=== PATIENT | female | born 1945 | race Caucasian/White ===

== ENCOUNTER 2016-11-10 11:05 | Outpatient (CLI) | payer OTHER, MEDICARE ==
[~2016-11-10 11:05] MED LIST: ALPR1TAB2; CETI-101 PO; CHLO5CAP3 PO; LIP10 PO; NEU300 PO; OMEP20CA4 PO; PROP60CA2 PO
== END 2016-11-10 20:49 | disposition home or self-care (01) ==
LOC: SMA 11:05
PROVIDERS: ATTEND Specialist
DX: Z12.31 Encounter for screening mammogram for malignant neoplasm of breast (principal)
CPT/HCPCS: G0202

== ENCOUNTER 2021-04-28 19:50 | Inpatient (IN) | payer OTHER, MEDICARE, SELFPAY ==
[~2021-04-28] VITALS: Ht 154.9 cm; Wt 51.7 kg
[~2021-04-28 19:50] MED LIST changes: -CETI-101 PO; +CETI-80 PO
[2021-04-28 20:36] VITALS: BP_SYST 129
[2021-04-28 22:02] LABS: EOSINOPHILS % (AUTO) 0.1 % (0.0-4.0); MEAN CORPUSCULAR HGB CONC 33 % (32-36); MONOCYTES # (AUTO) 0.5 K/uL (0.0-1.0); RED BLOOD CELL COUNT(AUTO) 3.26 MIL/uL (4.2-6.2); WHITE BLOOD COUNT (AUTO) 10.5 K/uL (4.8-10.8)
[2021-04-28 22:09] LABS: BASOPHILS % (AUTO) 0.1 % (0.0-2.0); HEMOGLOBIN 10.9 g/dL (12.0-16.0); LYMPHOCYTES # (AUTO) 0.2 K/uL (1.0-5.5); LYMPHOCYTES % (AUTO) 1.7 % (20.5-51.5); MEAN CORPUSCULAR HEMOGLOBIN 33 pg (27-31); MEAN CORPUSCULAR VOLUME 101 fL (79.0-98.0); MONOCYTES % (AUTO) 4.3 % (1.7-9.3); NEUTROPHILS # (AUTO) 9.9 K/uL (1.8-7.7); NEUTROPHILS % (AUTO) 93.8 % (40.0-70.0); PLATELET COUNT (AUTO) 254 K/uL (130-430); RED CELL DISTRIBUTION WIDTH 15.6 % (9.0-15.0)
[2021-04-28 22:25] LABS: ANION GAP 10 (5-15); CALCIUM 8.7 mg/dL (8.4-11.0); CHLORIDE 100 mmol/L (98-107); CREATININE 1.63 mg/dL (0.55-1.30); GLUCOSE 147 mg/dL (70-99); SODIUM SERUM 135 mmol/L (136-145); UREA NITROGEN, BLOOD 46 mg/dL (8-21)
[2021-04-28 22:31] LABS: C-REACTIVE PROTEIN QUANT 9.3 mg/dL (0-0.5)
[2021-04-28 22:34] LABS: ALANINE AMINOTRANSFERASE 22 U/L (12-78); ASPARTATE AMINOTRANSFERASE 63 U/L (10-37); LACTATE DEHYDROGENASE 481 U/L (81-234); TOTAL BILIRUBIN 0.3 mg/dL (0.0-1.0)
[2021-04-28 22:43] LABS: INR 0.9 (0.8-1.2); PROTHROMBIN TIME 9.5 SECS (9.5-12.5)
[2021-04-28] MEDS ORDERED: CALCIUM GLUCONATE 1 GM/10 ML VIAL IVP ONE (22:45)
[2021-04-28] MEDS ORDERED: SODIUM BICARBONATE 8.4% JECT 50 MEQ/50 ML SYRINGE IVP ONE (22:45)
[2021-04-28 22:46] LABS: POTASSIUM 5.8 mmol/L (3.5-5.1)
[2021-04-28] MEDS ORDERED: INSULIN REGULAR, HUMAN 10 UNITS/0.1 ML INJ IVP ONE (23:00)
[2021-04-28] MEDS ORDERED: DEXTROSE 50% JECT 50 ML DISP.SYRIN IVP ONE (23:00)
[2021-04-28] MEDS ORDERED: SODIUM POLYSTYRENE SULFONATE 15 GM/60 ML UDBTL PO ONE (23:00)
[2021-04-29 01:47] LABS: BILIRUBIN,URINE NEGATIVE (NEGATIVE); CLARITY/URINE CLEAR (CLEAR); COLOR,URINE YELLOW (YELLOW); GLUCOSE,URINE 1+ (NEGATIVE); KETONES,URINE NEGATIVE (NEGATIVE); LEUKOCYTE ESTERASE ,URINE 2+ (NEGATIVE); NITRITE, URINE POSITIVE (NEGATIVE); PROTEIN URINE TRACE (NEGATIVE); UROBILINOGEN,URINE 0.2 (0.2-1.0)
[2021-04-29 01:57] LABS: BLOOD, URINE TRACE (NEGATIVE)
[2021-04-29 02:06] LABS: BACTERIA,URINE MANY /HPF (None Seen); MUCUS,URINE None Seen /LPF (None Seen); RBC,URINE 0-3 /HPF (0-3); WBC,URINE 20-50 /HPF (0-3)
[2021-04-29 03:10] VITALS: BP_SYST 123
[2021-04-29] MEDS ORDERED: DEXAMETHASONE SOD PHOSPHATE 10 MG/ML VIAL IM ONE (03:30)
[2021-04-29] MEDS ORDERED: cefTRIAXone 1 GM in D5W 50 ML IV SCH (04:00)
[2021-04-29] MEDS ORDERED: DEXAMETHASONE SOD PHOSPHATE 10 MG/ML VIAL IVP ONE (04:15)
[2021-04-29] MEDS ORDERED: cefTRIAXone 1 GM IVPB PREMIX 50 ML IV ONE (04:27)
[2021-04-29] MEDS ORDERED: DOXYCYCLINE HYCLATE 100 MG VIAL IV ONE (04:28)
[2021-04-29] MEDS: DOXYCYCLINE HYCLATE 100 MG in D5W 100 ML IV SCH ×2 (05:37→17:54)
[2021-04-29 07:46] LABS: ANION GAP 11 (5-15); CALCIUM 8.6 mg/dL (8.4-11.0); CHLORIDE 110 mmol/L (98-107); CREATININE 1.49 mg/dL (0.55-1.30); GLUCOSE 202 mg/dL (70-99); POTASSIUM 4.7 mmol/L (3.5-5.1); SODIUM SERUM 147 mmol/L (136-145); UREA NITROGEN, BLOOD 40 mg/dL (8-21)
[2021-04-29 07:51] LABS: ALANINE AMINOTRANSFERASE 62 U/L (12-78); ALBUMIN 2.7 g/dL (3.4-4.8); LACTATE DEHYDROGENASE 552 U/L (81-234); TOTAL BILIRUBIN 0.2 mg/dL (0.0-1.0)
[2021-04-29 07:53] LABS: INR 0.9 (0.8-1.2); PROTHROMBIN TIME 9.4 SECS (9.5-12.5)
[2021-04-29 08:00] VITALS: BP_SYST 129
[2021-04-29 08:10] LABS: ASPARTATE AMINOTRANSFERASE 124 U/L (10-37)
[2021-04-29] MEDS: CHOLECALCIFEROL (VITAMIN D3) 5,000 UNIT TABLET PO SCH (08:44)
[2021-04-29] MEDS: ASCORBIC ACID 500 MG TABLET PO SCH ×2 (08:44→23:25)
[2021-04-29] MEDS: APIXABAN 2.5 MG TABLET PO SCH ×2 (08:45→23:28)
[2021-04-29] MEDS ORDERED: ONDANSETRON HCL 4 MG/2 ML VIAL IVP PRN (10:00)
[2021-04-29] MEDS: ALBUTEROL MDI INHALATION 8 GM INH INH SCH ×4 (11:00→23:46)
[2021-04-29] MEDS ORDERED: ALBUTEROL SULFATE 0.083% 2.5 MG/3 ML VIAL.NEB INH SCH (11:00)
[2021-04-29] MEDS ORDERED: IPRATROPIUM BROM 0.5 MG/2.5 ML VIAL.NEB (ATROVENT) INH SCH (11:00)
[2021-04-29] MEDS ORDERED: ALBUTEROL MDI INHALATION 8 GM INH INH PRN (11:15)
[2021-04-29] MEDS ORDERED: DEXAMETHASONE SOD PHOSPHATE 10 MG/ML VIAL IVP SCH (12:00)
[2021-04-29] MEDS: INSULIN REGULAR, HUMAN 100 UNITS/ML, 10 ML VIAL (humuLIN R) SUBCUT PRN (12:04)
[2021-04-29 12:06] VITALS: BP_SYST 120
[2021-04-29] MEDS ORDERED: D5W 1,000 ML IV ONE (12:30)
[2021-04-29] MEDS: AZITHROMYCIN 500 MG in NS 250 ML IV SCH (13:06)
[2021-04-29 13:41] LABS: CLARITY/URINE SLIGHTLY HAZY (CLEAR); COLOR,URINE YELLOW (YELLOW); PH,URINE 6.5 (5.0-8.0); PROTEIN URINE TRACE (NEGATIVE)
[2021-04-29 13:42] LABS: BILIRUBIN,URINE NEGATIVE (NEGATIVE); BLOOD, URINE 1+ (NEGATIVE); GLUCOSE,URINE 2+ (NEGATIVE); KETONES,URINE NEGATIVE (NEGATIVE); LEUKOCYTE ESTERASE ,URINE TRACE (NEGATIVE)
[2021-04-29 13:43] LABS: NITRITE, URINE POSITIVE (NEGATIVE); UROBILINOGEN,URINE 0.2 (0.2-1.0)
[2021-04-29 13:49] LABS: WBC,URINE 0-3 /HPF (0-3)
[2021-04-29 13:50] LABS: BACTERIA,URINE MODERATE /HPF (None Seen)
[2021-04-29] MEDS ORDERED: NORMAL SALINE 5 ML DISP.SYRIN IVF SCH (14:00)
[2021-04-29] MEDS: NORMAL SALINE 5 ML DISP.SYRIN IVF SCH ×2 (14:40→23:35)
[2021-04-29 16:20] VITALS: BP_SYST 130
[2021-04-29 20:00] VITALS: BP_SYST 130
[2021-04-29] MEDS: ATORVASTATIN 10 MG TABLET PO SCH (23:25)
[2021-04-30 00:05] VITALS: BP_SYST 127
[2021-04-30] MEDS: ALPRAZolam 0.25 MG TABLET PO PRN (01:50)
[2021-04-30] MEDS: NORMAL SALINE 5 ML DISP.SYRIN IVF SCH ×3 (06:17→21:01)
[2021-04-30] MEDS: DOXYCYCLINE HYCLATE 100 MG in D5W 100 ML IV SCH ×2 (06:17→20:17)
[2021-04-30 07:37] LABS: BASOPHILS % (AUTO) 0.1 % (0.0-2.0); HEMATOCRIT 33.5 % (36-48); HEMOGLOBIN 10.8 g/dL (12.0-16.0); LYMPHOCYTES # (AUTO) 0.5 K/uL (1.0-5.5); LYMPHOCYTES % (AUTO) 3.7 % (20.5-51.5); MEAN CORPUSCULAR HEMOGLOBIN 33 pg (27-31); MEAN CORPUSCULAR HGB CONC 32 % (32-36); MEAN CORPUSCULAR VOLUME 102 fL (79.0-98.0); MONOCYTES # (AUTO) 1.1 K/uL (0.0-1.0); MONOCYTES % (AUTO) 7.7 % (1.7-9.3); NEUTROPHILS # (AUTO) 12.7 K/uL (1.8-7.7); NEUTROPHILS % (AUTO) 88.5 % (40.0-70.0); PLATELET COUNT (AUTO) 247 K/uL (130-430); RED BLOOD CELL COUNT(AUTO) 3.28 MIL/uL (4.2-6.2); RED CELL DISTRIBUTION WIDTH 15.9 % (9.0-15.0); WHITE BLOOD COUNT (AUTO) 14.4 K/uL (4.8-10.8)
[2021-04-30 08:00] VITALS: BP_SYST 126
[2021-04-30 08:07] LABS: ALANINE AMINOTRANSFERASE 50 U/L (12-78); ALBUMIN 2.6 g/dL (3.4-4.8); ANION GAP 13 (5-15); ASPARTATE AMINOTRANSFERASE 90 U/L (10-37); CALCIUM 7.7 mg/dL (8.4-11.0); CHLORIDE 105 mmol/L (98-107); CREATININE 0.97 mg/dL (0.55-1.30); GLUCOSE 93 mg/dL (70-99); POTASSIUM 3.7 mmol/L (3.5-5.1); SODIUM SERUM 144 mmol/L (136-145); TOTAL BILIRUBIN 0.2 mg/dL (0.0-1.0); UREA NITROGEN, BLOOD 35 mg/dL (8-21)
[2021-04-30] MEDS: PROPRANOLOL HCL (INDERAL LA 60MG) PO SCH (09:00)
[2021-04-30] MEDS ORDERED: DEXAMETHASONE SOD PHOSPHATE 10 MG/ML VIAL IVP SCH (09:00)
[2021-04-30] MEDS: ALBUTEROL MDI INHALATION 8 GM INH INH SCH ×6 (09:29→23:20)
[2021-04-30] MEDS: cefTRIAXone 1 GM IVPB PREMIX 50 ML IV SCH (10:19)
[2021-04-30] MEDS: CHOLECALCIFEROL (VITAMIN D3) 5,000 UNIT TABLET PO SCH (10:20)
[2021-04-30] MEDS: PANTOPRAZOLE SODIUM 40 MG TAB PO SCH (10:20)
[2021-04-30] MEDS: ASCORBIC ACID 500 MG TABLET PO SCH ×2 (10:20→20:19)
[2021-04-30] MEDS: GABAPENTIN 300 MG CAPSULE PO SCH (10:20)
[2021-04-30] MEDS: APIXABAN 2.5 MG TABLET PO SCH ×2 (10:22→20:18)
[2021-04-30 12:00] VITALS: BP_SYST 136
[2021-04-30] MEDS: AZITHROMYCIN 500 MG in NS 250 ML IV SCH (12:21)
[2021-04-30 16:00] VITALS: BP_SYST 133
[2021-04-30 20:00] VITALS: BP_SYST 129
[2021-04-30] MEDS: ATORVASTATIN 10 MG TABLET PO SCH (20:17)
[2021-05-01 00:41] VITALS: BP_SYST 143
[2021-05-01 05:13] VITALS: BP_SYST 125
[2021-05-01] MEDS: DOXYCYCLINE HYCLATE 100 MG in D5W 100 ML IV SCH ×2 (05:56→18:00)
[2021-05-01] MEDS: NORMAL SALINE 5 ML DISP.SYRIN IVF SCH ×3 (06:01→22:00)
[2021-05-01] MEDS: ALBUTEROL MDI INHALATION 8 GM INH INH SCH ×3 (08:12→15:00)
[2021-05-01] MEDS: PROPRANOLOL HCL (INDERAL LA 60MG) PO SCH (09:00)
[2021-05-01] MEDS: cefTRIAXone 1 GM IVPB PREMIX 50 ML IV SCH (09:11)
[2021-05-01] MEDS: PANTOPRAZOLE SODIUM 40 MG TAB PO SCH (09:11)
[2021-05-01] MEDS: GABAPENTIN 300 MG CAPSULE PO SCH (09:11)
[2021-05-01] MEDS: DEXAMETHASONE SOD PHOSPHATE 10 MG/ML VIAL IVP SCH (09:11)
[2021-05-01] MEDS: ASCORBIC ACID 500 MG TABLET PO SCH ×2 (09:11→21:16)
[2021-05-01] MEDS: CHOLECALCIFEROL (VITAMIN D3) 5,000 UNIT TABLET PO SCH (09:11)
[2021-05-01] MEDS: APIXABAN 2.5 MG TABLET PO SCH ×2 (09:12→21:23)
[2021-05-01 09:15] VITALS: BP_SYST 98
[2021-05-01 11:11] LABS: BASOPHILS % (AUTO) 0.3 % (0.0-2.0); EOSINOPHILS # (AUTO) 0.1 K/uL (0.0-0.4); EOSINOPHILS % (AUTO) 0.5 % (0.0-4.0); HEMATOCRIT 37.5 % (36-48); HEMOGLOBIN 11.9 g/dL (12.0-16.0); LYMPHOCYTES # (AUTO) 0.5 K/uL (1.0-5.5); LYMPHOCYTES % (AUTO) 3.1 % (20.5-51.5); MEAN CORPUSCULAR HEMOGLOBIN 33 pg (27-31); MEAN CORPUSCULAR HGB CONC 32 % (32-36); MEAN CORPUSCULAR VOLUME 104 fL (79.0-98.0); MONOCYTES # (AUTO) 0.9 K/uL (0.0-1.0); MONOCYTES % (AUTO) 5.1 % (1.7-9.3); PLATELET COUNT (AUTO) 265 K/uL (130-430); RED BLOOD CELL COUNT(AUTO) 3.61 MIL/uL (4.2-6.2); RED CELL DISTRIBUTION WIDTH 16.3 % (9.0-15.0); WHITE BLOOD COUNT (AUTO) 17.6 K/uL (4.8-10.8)
[2021-05-01 11:50] LABS: ALANINE AMINOTRANSFERASE 45 U/L (12-78); ALBUMIN 2.6 g/dL (3.4-4.8); ANION GAP 13 (5-15); ASPARTATE AMINOTRANSFERASE 85 U/L (10-37); CALCIUM 8.5 mg/dL (8.4-11.0); CHLORIDE 108 mmol/L (98-107); GLUCOSE 172 mg/dL (70-99); POTASSIUM 5.1 mmol/L (3.5-5.1); SODIUM SERUM 143 mmol/L (136-145); TOTAL BILIRUBIN 0.4 mg/dL (0.0-1.0); UREA NITROGEN, BLOOD 43 mg/dL (8-21)
[2021-05-01 12:08] LABS: C-REACTIVE PROTEIN QUANT 10.8 mg/dL (0-0.5)
[2021-05-01 12:46] VITALS: BP_SYST 132
[2021-05-01] MEDS: AZITHROMYCIN 500 MG in NS 250 ML IV SCH (13:15)
[2021-05-01 16:33] VITALS: BP_SYST 112
[2021-05-01] MEDS: FUROSEMIDE 20 MG/2 ML VIAL IVP SCH (18:00)
[2021-05-01 20:00] VITALS: BP_SYST 129
[2021-05-01] MEDS: ATORVASTATIN 10 MG TABLET PO SCH (21:16)
[2021-05-01] MEDS: INSULIN REGULAR, HUMAN 100 UNITS/ML, 10 ML VIAL (humuLIN R) SUBCUT PRN (21:22)
[2021-05-02 01:20] LABS: INR 1.2 (0.8-1.2); PROTHROMBIN TIME 11.8 SECS (9.5-12.5)
[2021-05-02 03:07] VITALS: BP_SYST 129
[2021-05-02] MEDS: NORMAL SALINE 5 ML DISP.SYRIN IVF SCH ×2 (06:00→21:36)
[2021-05-02] MEDS: ALBUTEROL MDI INHALATION 8 GM INH INH SCH ×6 (06:03→15:06)
[2021-05-02 07:42] LABS: BASOPHILS % (AUTO) 0.4 % (0.0-2.0); HEMATOCRIT 37.8 % (36-48); HEMOGLOBIN 12.3 g/dL (12.0-16.0); LYMPHOCYTES # (AUTO) 0.3 K/uL (1.0-5.5); LYMPHOCYTES % (AUTO) 2.7 % (20.5-51.5); MEAN CORPUSCULAR HEMOGLOBIN 33 pg (27-31); MEAN CORPUSCULAR HGB CONC 32 % (32-36); MEAN CORPUSCULAR VOLUME 103 fL (79.0-98.0); MONOCYTES # (AUTO) 0.8 K/uL (0.0-1.0); MONOCYTES % (AUTO) 7.3 % (1.7-9.3); NEUTROPHILS # (AUTO) 9.2 K/uL (1.8-7.7); NEUTROPHILS % (AUTO) 89.6 % (40.0-70.0); PLATELET COUNT (AUTO) 255 K/uL (130-430); RED BLOOD CELL COUNT(AUTO) 3.69 MIL/uL (4.2-6.2); RED CELL DISTRIBUTION WIDTH 16.4 % (9.0-15.0); WHITE BLOOD COUNT (AUTO) 10.3 K/uL (4.8-10.8)
[2021-05-02 07:56] LABS: ALANINE AMINOTRANSFERASE 41 U/L (12-78); ALBUMIN 2.8 g/dL (3.4-4.8); ANION GAP 12 (5-15); ASPARTATE AMINOTRANSFERASE 59 U/L (10-37); C-REACTIVE PROTEIN QUANT 13.4 mg/dL (0-0.5); CALCIUM 9.2 mg/dL (8.4-11.0); CHLORIDE 107 mmol/L (98-107); CREATININE 1.07 mg/dL (0.55-1.30); GLUCOSE 197 mg/dL (70-99); POTASSIUM 4.8 mmol/L (3.5-5.1); SODIUM SERUM 141 mmol/L (136-145); TOTAL BILIRUBIN 0.5 mg/dL (0.0-1.0); UREA NITROGEN, BLOOD 46 mg/dL (8-21)
[2021-05-02] MEDS: cefTRIAXone 1 GM IVPB PREMIX 50 ML IV SCH (08:00)
[2021-05-02] MEDS: DEXAMETHASONE SOD PHOSPHATE 10 MG/ML VIAL IVP SCH (09:00)
[2021-05-02] MEDS: FUROSEMIDE 20 MG/2 ML VIAL IVP SCH (09:00)
[2021-05-02] MEDS: APIXABAN 2.5 MG TABLET PO SCH ×2 (09:31→21:04)
[2021-05-02] MEDS: ASCORBIC ACID 500 MG TABLET PO SCH ×2 (09:32→21:02)
[2021-05-02] MEDS: CHOLECALCIFEROL (VITAMIN D3) 5,000 UNIT TABLET PO SCH (09:32)
[2021-05-02] MEDS: GABAPENTIN 300 MG CAPSULE PO SCH (09:32)
[2021-05-02] MEDS: PANTOPRAZOLE SODIUM 40 MG TAB PO SCH (09:32)
[2021-05-02] MEDS: PROPRANOLOL HCL (INDERAL LA 60MG) PO SCH (09:33)
[2021-05-02] MEDS: INSULIN REGULAR, HUMAN 100 UNITS/ML, 10 ML VIAL (humuLIN R) SUBCUT PRN (11:57)
[2021-05-02 12:00] VITALS: BP_SYST 119
[2021-05-02] MEDS: AZITHROMYCIN 500 MG in NS 250 ML IV SCH (12:00)
[2021-05-02 13:40] LABS: ERYTHROCYTE SEDIMENTATION RATE 60 MM/HR (0-20)
[2021-05-02 17:00] VITALS: BP_SYST 128
[2021-05-02 20:00] VITALS: BP_SYST 120; BP_SYST 124
[2021-05-02] MEDS: ATORVASTATIN 10 MG TABLET PO SCH (21:02)
[2021-05-02] MEDS: ALPRAZolam 0.25 MG TABLET PO PRN (22:41)
[2021-05-03 01:00] VITALS: BP_SYST 121
[2021-05-03] MEDS: DOXYCYCLINE HYCLATE 100 MG in D5W 100 ML IV SCH ×2 (05:28→16:14)
[2021-05-03] MEDS: NORMAL SALINE 5 ML DISP.SYRIN IVF SCH ×3 (05:28→22:00)
[2021-05-03] MEDS: ALBUTEROL MDI INHALATION 8 GM INH INH SCH ×2 (07:00→15:00)
[2021-05-03] MEDS: cefTRIAXone 1 GM IVPB PREMIX 50 ML IV SCH (08:00)
[2021-05-03 08:14] LABS: BASOPHILS % (AUTO) 0.1 % (0.0-2.0); EOSINOPHILS % (AUTO) 0.2 % (0.0-4.0); HEMOGLOBIN 12.6 g/dL (12.0-16.0); LYMPHOCYTES # (AUTO) 0.5 K/uL (1.0-5.5); LYMPHOCYTES % (AUTO) 3.1 % (20.5-51.5); MEAN CORPUSCULAR HEMOGLOBIN 32 pg (27-31); MEAN CORPUSCULAR HGB CONC 32 % (32-36); MEAN CORPUSCULAR VOLUME 101 fL (79.0-98.0); MONOCYTES # (AUTO) 0.8 K/uL (0.0-1.0); MONOCYTES % (AUTO) 4.9 % (1.7-9.3); NEUTROPHILS # (AUTO) 14.6 K/uL (1.8-7.7); NEUTROPHILS % (AUTO) 91.7 % (40.0-70.0); PLATELET COUNT (AUTO) 250 K/uL (130-430); RED BLOOD CELL COUNT(AUTO) 3.88 MIL/uL (4.2-6.2); RED CELL DISTRIBUTION WIDTH 15.8 % (9.0-15.0); WHITE BLOOD COUNT (AUTO) 15.9 K/uL (4.8-10.8)
[2021-05-03 08:21] LABS: ALANINE AMINOTRANSFERASE 43 U/L (12-78); ALBUMIN 2.9 g/dL (3.4-4.8); ANION GAP 10 (5-15); ASPARTATE AMINOTRANSFERASE 32 U/L (10-37); CALCIUM 8.9 mg/dL (8.4-11.0); CHLORIDE 107 mmol/L (98-107); CREATININE 0.99 mg/dL (0.55-1.30); GLUCOSE 137 mg/dL (70-99); POTASSIUM 4.8 mmol/L (3.5-5.1); SODIUM SERUM 143 mmol/L (136-145); TOTAL BILIRUBIN 0.7 mg/dL (0.0-1.0); UREA NITROGEN, BLOOD 43 mg/dL (8-21)
[2021-05-03] MEDS: DEXAMETHASONE SOD PHOSPHATE 10 MG/ML VIAL IVP SCH (09:00)
[2021-05-03] MEDS: FUROSEMIDE 20 MG/2 ML VIAL IVP SCH (09:00)
[2021-05-03] MEDS: PANTOPRAZOLE SODIUM 40 MG TAB PO SCH (09:20)
[2021-05-03] MEDS: GABAPENTIN 300 MG CAPSULE PO SCH (09:20)
[2021-05-03] MEDS: CHOLECALCIFEROL (VITAMIN D3) 5,000 UNIT TABLET PO SCH (09:20)
[2021-05-03] MEDS: ASCORBIC ACID 500 MG TABLET PO SCH ×2 (09:21→21:33)
[2021-05-03] MEDS: PROPRANOLOL HCL (INDERAL LA 60MG) PO SCH (09:22)
[2021-05-03] MEDS: APIXABAN 2.5 MG TABLET PO SCH ×2 (09:27→21:34)
[2021-05-03] MEDS: AZITHROMYCIN 500 MG in NS 250 ML IV SCH (11:05)
[2021-05-03 11:29] VITALS: BP_SYST 126
[2021-05-03 14:44] VITALS: BP_SYST 126
[2021-05-03 15:20] VITALS: BP_SYST 120
[2021-05-03] MEDS: ATORVASTATIN 10 MG TABLET PO SCH (21:34)
[2021-05-03] MEDS: INSULIN REGULAR, HUMAN 100 UNITS/ML, 10 ML VIAL (humuLIN R) SUBCUT PRN (21:41)
[2021-05-03 21:54] VITALS: BP_SYST 134
[2021-05-04 00:14] VITALS: BP_SYST 109
[2021-05-04] MEDS: ALBUTEROL MDI INHALATION 8 GM INH INH SCH ×7 (01:02→22:12)
[2021-05-04] MEDS: DOXYCYCLINE HYCLATE 100 MG in D5W 100 ML IV SCH ×2 (07:01→17:55)
[2021-05-04] MEDS: NORMAL SALINE 5 ML DISP.SYRIN IVF SCH ×3 (07:02→22:36)
[2021-05-04 08:00] VITALS: BP_SYST 126
[2021-05-04] MEDS: PROPRANOLOL HCL (INDERAL LA 60MG) PO SCH ×2 (09:00→14:32)
[2021-05-04] MEDS: cefTRIAXone 1 GM IVPB PREMIX 50 ML IV SCH (11:22)
[2021-05-04] MEDS: DEXAMETHASONE SOD PHOSPHATE 10 MG/ML VIAL IVP SCH (11:23)
[2021-05-04] MEDS: FUROSEMIDE 20 MG/2 ML VIAL IVP SCH (11:24)
[2021-05-04] MEDS: PANTOPRAZOLE SODIUM 40 MG TAB PO SCH (11:24)
[2021-05-04] MEDS: GABAPENTIN 300 MG CAPSULE PO SCH (11:24)
[2021-05-04] MEDS: ASCORBIC ACID 500 MG TABLET PO SCH ×2 (11:24→22:35)
[2021-05-04] MEDS: CHOLECALCIFEROL (VITAMIN D3) 5,000 UNIT TABLET PO SCH (11:25)
[2021-05-04] MEDS: APIXABAN 2.5 MG TABLET PO SCH ×2 (11:27→22:35)
[2021-05-04] MEDS: INSULIN REGULAR, HUMAN 100 UNITS/ML, 10 ML VIAL (humuLIN R) SUBCUT PRN ×3 (11:28→22:39)
[2021-05-04 11:30] VITALS: BP_SYST 123
[2021-05-04] MEDS: BARICITINIB -Non-Formulary 2 MG TABLET PO SCH (14:31)
[2021-05-04 16:11] VITALS: BP_SYST 126
[2021-05-04 18:49] VITALS: BP_SYST 126
[2021-05-04 20:00] VITALS: BP_SYST 141
[2021-05-04] MEDS: ATORVASTATIN 10 MG TABLET PO SCH (22:34)
[2021-05-05 00:12] VITALS: BP_SYST 124
[2021-05-05] MEDS: ALBUTEROL MDI INHALATION 8 GM INH INH SCH ×5 (03:00→15:37)
[2021-05-05] MEDS: ALPRAZolam 0.25 MG TABLET PO PRN (03:30)
[2021-05-05] MEDS: DOXYCYCLINE HYCLATE 100 MG in D5W 100 ML IV SCH (06:29)
[2021-05-05] MEDS: NORMAL SALINE 5 ML DISP.SYRIN IVF SCH ×3 (06:30→21:08)
[2021-05-05 07:15] LABS: BASOPHILS % (AUTO) 0.5 % (0.0-2.0); EOSINOPHILS % (AUTO) 0.1 % (0.0-4.0); HEMATOCRIT 34.5 % (36-48); HEMOGLOBIN 11.4 g/dL (12.0-16.0); LYMPHOCYTES # (AUTO) 0.3 K/uL (1.0-5.5); LYMPHOCYTES % (AUTO) 3.1 % (20.5-51.5); MEAN CORPUSCULAR HEMOGLOBIN 33 pg (27-31); MEAN CORPUSCULAR HGB CONC 33 % (32-36); MEAN CORPUSCULAR VOLUME 101 fL (79.0-98.0); MONOCYTES # (AUTO) 0.4 K/uL (0.0-1.0); MONOCYTES % (AUTO) 4.5 % (1.7-9.3); NEUTROPHILS # (AUTO) 7.8 K/uL (1.8-7.7); NEUTROPHILS % (AUTO) 91.8 % (40.0-70.0); PLATELET COUNT (AUTO) 179 K/uL (130-430); RED CELL DISTRIBUTION WIDTH 15.3 % (9.0-15.0)
[2021-05-05 07:53] LABS: ALANINE AMINOTRANSFERASE 24 U/L (12-78); ALBUMIN 2.3 g/dL (3.4-4.8); ANION GAP 10 (5-15); ASPARTATE AMINOTRANSFERASE 22 U/L (10-37); CALCIUM 8.9 mg/dL (8.4-11.0); CHLORIDE 106 mmol/L (98-107); CREATININE 0.97 mg/dL (0.55-1.30); GLUCOSE 141 mg/dL (70-99); POTASSIUM 4.6 mmol/L (3.5-5.1); SODIUM SERUM 141 mmol/L (136-145); TOTAL BILIRUBIN 0.5 mg/dL (0.0-1.0); UREA NITROGEN, BLOOD 48 mg/dL (8-21)
[2021-05-05 08:00] VITALS: BP_SYST 100
[2021-05-05] MEDS: cefTRIAXone 1 GM IVPB PREMIX 50 ML IV SCH (08:48)
[2021-05-05] MEDS: PANTOPRAZOLE SODIUM 40 MG TAB PO SCH (08:49)
[2021-05-05] MEDS: ASCORBIC ACID 500 MG TABLET PO SCH ×2 (08:49→20:44)
[2021-05-05] MEDS: DEXAMETHASONE SOD PHOSPHATE 10 MG/ML VIAL IVP SCH (08:49)
[2021-05-05] MEDS: BARICITINIB -Non-Formulary 2 MG TABLET PO SCH (08:50)
[2021-05-05] MEDS: GABAPENTIN 300 MG CAPSULE PO SCH (08:50)
[2021-05-05 08:56] LABS: WHITE BLOOD COUNT (AUTO) 8.5 K/uL (4.8-10.8)
[2021-05-05] MEDS: FUROSEMIDE 20 MG/2 ML VIAL IVP SCH (09:25)
[2021-05-05] MEDS: CHOLECALCIFEROL (VITAMIN D3) 5,000 UNIT TABLET PO SCH (09:25)
[2021-05-05] MEDS: PROPRANOLOL HCL (INDERAL LA 60MG) PO SCH (09:25)
[2021-05-05] MEDS: APIXABAN 2.5 MG TABLET PO SCH ×2 (09:29→20:45)
[2021-05-05 10:00] LABS: C-REACTIVE PROTEIN QUANT 12.7 mg/dL (0-0.5)
[2021-05-05 11:00] LABS: ERYTHROCYTE SEDIMENTATION RATE 69 MM/HR (0-20)
[2021-05-05 11:26] VITALS: BP_SYST 120
[2021-05-05] MEDS: INSULIN REGULAR, HUMAN 100 UNITS/ML, 10 ML VIAL (humuLIN R) SUBCUT PRN ×2 (11:41→16:53)
[2021-05-05 16:03] VITALS: BP_SYST 136
[2021-05-05 20:00] VITALS: BP_SYST 143
[2021-05-05] MEDS: ATORVASTATIN 10 MG TABLET PO SCH (20:53)
[2021-05-06] VITALS (17 sets, daily range): BP systolic 108–153
[2021-05-06] MEDS: ACETAMINOPHEN 325 MG TABLET PO PRN (00:39)
[2021-05-06] MEDS: ALPRAZolam 0.25 MG TABLET PO PRN (00:39)
[2021-05-06] MEDS: guaiFENesin/DEXTROMETHORPHAN 10 ML UDC PO PRN ×2 (00:40→06:18)
[2021-05-06] MEDS: ALBUTEROL MDI INHALATION 8 GM INH INH SCH ×3 (05:14→21:22)
[2021-05-06] MEDS: NORMAL SALINE 5 ML DISP.SYRIN IVF SCH ×3 (06:19→22:02)
[2021-05-06] MEDS: INSULIN REGULAR, HUMAN 100 UNITS/ML, 10 ML VIAL (humuLIN R) SUBCUT PRN ×2 (06:26→18:54)
[2021-05-06 08:50] LABS: ALANINE AMINOTRANSFERASE 26 U/L (12-78); ALBUMIN 2.3 g/dL (3.4-4.8); ANION GAP 13 (5-15); ASPARTATE AMINOTRANSFERASE 38 U/L (10-37); C-REACTIVE PROTEIN QUANT 5.3 mg/dL (0-0.5); CALCIUM 8.9 mg/dL (8.4-11.0); CHLORIDE 107 mmol/L (98-107); CREATININE 1.14 mg/dL (0.55-1.30); GLUCOSE 183 mg/dL (70-99); SODIUM SERUM 141 mmol/L (136-145); TOTAL BILIRUBIN 0.5 mg/dL (0.0-1.0); UREA NITROGEN, BLOOD 72 mg/dL (8-21)
[2021-05-06] MEDS ORDERED: FUROSEMIDE 40 MG/4 ML VIAL IVP ONE (09:00)
[2021-05-06] MEDS: ASCORBIC ACID 500 MG TABLET PO SCH ×2 (09:00→20:45)
[2021-05-06] MEDS: CHOLECALCIFEROL (VITAMIN D3) 5,000 UNIT TABLET PO SCH (09:00)
[2021-05-06] MEDS: GABAPENTIN 300 MG CAPSULE PO SCH (09:00)
[2021-05-06] MEDS: PROPRANOLOL HCL (INDERAL LA 60MG) PO SCH (09:00)
[2021-05-06] MEDS: PANTOPRAZOLE SODIUM 40 MG TAB PO SCH (09:00)
[2021-05-06] MEDS: BARICITINIB -Non-Formulary 2 MG TABLET PO SCH (09:00)
[2021-05-06] MEDS: APIXABAN 2.5 MG TABLET PO SCH ×2 (09:00→20:46)
[2021-05-06 09:16] LABS: BASOPHILS % (AUTO) 0.4 % (0.0-2.0); EOSINOPHILS % (AUTO) 0.1 % (0.0-4.0); HEMATOCRIT 38.7 % (36-48); HEMOGLOBIN 12.4 g/dL (12.0-16.0); LYMPHOCYTES # (AUTO) 0.4 K/uL (1.0-5.5); LYMPHOCYTES % (AUTO) 4.2 % (20.5-51.5); MEAN CORPUSCULAR HEMOGLOBIN 33 pg (27-31); MEAN CORPUSCULAR HGB CONC 32 % (32-36); MEAN CORPUSCULAR VOLUME 103 fL (79.0-98.0); MONOCYTES # (AUTO) 1.1 K/uL (0.0-1.0); MONOCYTES % (AUTO) 11.4 % (1.7-9.3); NEUTROPHILS # (AUTO) 8.3 K/uL (1.8-7.7); NEUTROPHILS % (AUTO) 83.9 % (40.0-70.0); PLATELET COUNT (AUTO) 203 K/uL (130-430); RED BLOOD CELL COUNT(AUTO) 3.74 MIL/uL (4.2-6.2); RED CELL DISTRIBUTION WIDTH 15.8 % (9.0-15.0); WHITE BLOOD COUNT (AUTO) 9.9 K/uL (4.8-10.8)
[2021-05-06] MEDS: FUROSEMIDE 20 MG/2 ML VIAL IVP SCH ×2 (09:16→09:24)
[2021-05-06] MEDS: cefTRIAXone 1 GM IVPB PREMIX 50 ML IV SCH (09:16)
[2021-05-06] MEDS: DEXAMETHASONE SOD PHOSPHATE 10 MG/ML VIAL IVP SCH (09:17)
[2021-05-06 10:13] LABS: POTASSIUM 5.2 mmol/L (3.5-5.1)
[2021-05-06] MEDS: D5/0.45 NS 1,000 ML IV SCH (11:48)
[2021-05-06] MEDS ORDERED: ATROPINE SULFATE 1 MG/10 ML SYRINGE IVP PRN (16:15)
[2021-05-06] MEDS ORDERED: DOPamine PREMIX 250 ML IV PRN (16:15)
[2021-05-06 18:29] LABS: ALANINE AMINOTRANSFERASE 22 U/L (12-78); ALBUMIN 2.5 g/dL (3.4-4.8); ANION GAP 13 (5-15); ASPARTATE AMINOTRANSFERASE 20 U/L (10-37); CALCIUM 8.8 mg/dL (8.4-11.0); CHLORIDE 105 mmol/L (98-107); CREATININE 1.07 mg/dL (0.55-1.30); GLUCOSE 291 mg/dL (70-99); PHOSPHORUS 4.5 mg/dL (2.7-4.5); POTASSIUM 5.1 mmol/L (3.5-5.1); SODIUM SERUM 140 mmol/L (136-145); TOTAL BILIRUBIN 0.3 mg/dL (0.0-1.0); UREA NITROGEN, BLOOD 63 mg/dL (8-21)
[2021-05-06] MEDS: ATORVASTATIN 10 MG TABLET PO SCH (20:44)
[2021-05-07] VITALS (24 sets, daily range): BP systolic 96–154
[2021-05-07] MEDS ORDERED: NYSTATIN 500,000 UNITS/5 ML UDC ONE (00:14)
[2021-05-07] MEDS: NYSTATIN 500,000 UNITS/5 ML UDC PO SCH ×4 (00:33→18:00)
[2021-05-07] MEDS: ALPRAZolam 0.25 MG TABLET PO PRN (00:33)
[2021-05-07] MEDS: D5/0.45 NS 1,000 ML IV SCH ×3 (00:34→17:30)
[2021-05-07] MEDS: ALBUTEROL MDI INHALATION 8 GM INH INH SCH ×5 (04:54→19:50)
[2021-05-07] MEDS: NORMAL SALINE 5 ML DISP.SYRIN IVF SCH ×3 (06:08→22:00)
[2021-05-07 07:47] LABS: BASOPHILS % (AUTO) 0.1 % (0.0-2.0); HEMATOCRIT 34.6 % (36-48); HEMOGLOBIN 11.2 g/dL (12.0-16.0); LYMPHOCYTES # (AUTO) 0.2 K/uL (1.0-5.5); LYMPHOCYTES % (AUTO) 1.1 % (20.5-51.5); MEAN CORPUSCULAR HEMOGLOBIN 33 pg (27-31); MEAN CORPUSCULAR HGB CONC 32 % (32-36); MEAN CORPUSCULAR VOLUME 102 fL (79.0-98.0); MONOCYTES # (AUTO) 1.4 K/uL (0.0-1.0); MONOCYTES % (AUTO) 10.3 % (1.7-9.3); NEUTROPHILS # (AUTO) 12.2 K/uL (1.8-7.7); NEUTROPHILS % (AUTO) 88.5 % (40.0-70.0); PLATELET COUNT (AUTO) 215 K/uL (130-430); RED CELL DISTRIBUTION WIDTH 15.8 % (9.0-15.0); WHITE BLOOD COUNT (AUTO) 13.8 K/uL (4.8-10.8)
[2021-05-07 08:22] LABS: ALANINE AMINOTRANSFERASE 31 U/L (12-78); ALBUMIN 2.5 g/dL (3.4-4.8); ANION GAP 11 (5-15); ASPARTATE AMINOTRANSFERASE 38 U/L (10-37); CALCIUM 8.1 mg/dL (8.4-11.0); CHLORIDE 107 mmol/L (98-107); CREATININE 0.76 mg/dL (0.55-1.30); GLUCOSE 219 mg/dL (70-99); POTASSIUM 4.7 mmol/L (3.5-5.1); SODIUM SERUM 143 mmol/L (136-145); TOTAL BILIRUBIN 0.4 mg/dL (0.0-1.0); UREA NITROGEN, BLOOD 51 mg/dL (8-21)
[2021-05-07] MEDS: BARICITINIB -Non-Formulary 2 MG TABLET PO SCH (09:00)
[2021-05-07] MEDS: cefTRIAXone 1 GM IVPB PREMIX 50 ML IV SCH (10:11)
[2021-05-07] MEDS: DEXAMETHASONE SOD PHOSPHATE 10 MG/ML VIAL IVP SCH (10:11)
[2021-05-07] MEDS: APIXABAN 2.5 MG TABLET PO SCH ×2 (10:13→21:00)
[2021-05-07] MEDS: GABAPENTIN 300 MG CAPSULE PO SCH (10:14)
[2021-05-07] MEDS: ASCORBIC ACID 500 MG TABLET PO SCH ×2 (10:14→21:00)
[2021-05-07] MEDS: PANTOPRAZOLE SODIUM 40 MG TAB PO SCH (10:15)
[2021-05-07] MEDS: CHOLECALCIFEROL (VITAMIN D3) 5,000 UNIT TABLET PO SCH (10:22)
[2021-05-07 10:37] LABS: C-REACTIVE PROTEIN QUANT 2.3 mg/dL (0-0.5)
[2021-05-07 12:33] LABS: ERYTHROCYTE SEDIMENTATION RATE 55 MM/HR (0-20)
[2021-05-07] MEDS: ACETAMINOPHEN 325 MG TABLET PO PRN ×2 (12:54→14:36)
[2021-05-07] MEDS: INSULIN REGULAR, HUMAN 100 UNITS/ML, 10 ML VIAL (humuLIN R) SUBCUT PRN (19:43)
[2021-05-07] MEDS: ATORVASTATIN 10 MG TABLET PO SCH (21:00)
[2021-05-08] VITALS (23 sets, daily range): BP systolic 91–154
[2021-05-08] MEDS: ALPRAZolam 0.25 MG TABLET PO PRN (02:35)
[2021-05-08] MEDS: D5/0.45 NS 1,000 ML IV SCH (03:30)
[2021-05-08] MEDS: ALBUTEROL MDI INHALATION 8 GM INH INH SCH ×6 (03:48→19:20)
[2021-05-08] MEDS: NYSTATIN 500,000 UNITS/5 ML UDC PO SCH ×4 (06:00→18:00)
[2021-05-08] MEDS: NORMAL SALINE 5 ML DISP.SYRIN IVF SCH ×3 (06:01→22:00)
[2021-05-08] MEDS: INSULIN REGULAR, HUMAN 100 UNITS/ML, 10 ML VIAL (humuLIN R) SUBCUT PRN ×3 (06:51→19:32)
[2021-05-08 07:01] LABS: BASOPHILS % (AUTO) 0.1 % (0.0-2.0); EOSINOPHILS % (AUTO) 0.3 % (0.0-4.0); HEMATOCRIT 32.9 % (36-48); HEMOGLOBIN 10.8 g/dL (12.0-16.0); LYMPHOCYTES # (AUTO) 0.2 K/uL (1.0-5.5); LYMPHOCYTES % (AUTO) 1.8 % (20.5-51.5); MEAN CORPUSCULAR HEMOGLOBIN 33 pg (27-31); MEAN CORPUSCULAR HGB CONC 33 % (32-36); MEAN CORPUSCULAR VOLUME 101 fL (79.0-98.0); MONOCYTES # (AUTO) 0.6 K/uL (0.0-1.0); MONOCYTES % (AUTO) 4.6 % (1.7-9.3); NEUTROPHILS # (AUTO) 12.2 K/uL (1.8-7.7); NEUTROPHILS % (AUTO) 93.2 % (40.0-70.0); PLATELET COUNT (AUTO) 199 K/uL (130-430); RED BLOOD CELL COUNT(AUTO) 3.27 MIL/uL (4.2-6.2); RED CELL DISTRIBUTION WIDTH 15.1 % (9.0-15.0); WHITE BLOOD COUNT (AUTO) 13.1 K/uL (4.8-10.8)
[2021-05-08 07:31] LABS: ALANINE AMINOTRANSFERASE 26 U/L (12-78); ALBUMIN 2.2 g/dL (3.4-4.8); ANION GAP 9 (5-15); ASPARTATE AMINOTRANSFERASE 33 U/L (10-37); CALCIUM 7.8 mg/dL (8.4-11.0); CHLORIDE 107 mmol/L (98-107); CREATININE 0.67 mg/dL (0.55-1.30); GLUCOSE 188 mg/dL (70-99); POTASSIUM 3.5 mmol/L (3.5-5.1); SODIUM SERUM 139 mmol/L (136-145); TOTAL BILIRUBIN 0.4 mg/dL (0.0-1.0); UREA NITROGEN, BLOOD 26 mg/dL (8-21)
[2021-05-08 08:56] LABS: C-REACTIVE PROTEIN QUANT 6.7 mg/dL (0-0.5)
[2021-05-08] MEDS: cefTRIAXone 1 GM IVPB PREMIX 50 ML IV SCH (08:58)
[2021-05-08] MEDS: DEXAMETHASONE SOD PHOSPHATE 10 MG/ML VIAL IVP SCH (09:00)
[2021-05-08] MEDS: FUROSEMIDE 20 MG/2 ML VIAL IVP SCH (09:06)
[2021-05-08] MEDS: APIXABAN 2.5 MG TABLET PO SCH ×2 (09:09→21:00)
[2021-05-08] MEDS: ASCORBIC ACID 500 MG TABLET PO SCH ×2 (09:10→21:00)
[2021-05-08] MEDS: GABAPENTIN 300 MG CAPSULE PO SCH (09:10)
[2021-05-08] MEDS: CHOLECALCIFEROL (VITAMIN D3) 5,000 UNIT TABLET PO SCH (09:10)
[2021-05-08] MEDS: PANTOPRAZOLE SODIUM 40 MG TAB PO SCH (09:11)
[2021-05-08] MEDS: BARICITINIB -Non-Formulary 2 MG TABLET PO SCH (09:54)
[2021-05-08] MEDS: ACETAMINOPHEN 325 MG TABLET PO PRN (13:07)
[2021-05-08 13:34] LABS: ERYTHROCYTE SEDIMENTATION RATE 54 MM/HR (0-20)
[2021-05-08] MEDS: ATORVASTATIN 10 MG TABLET PO SCH (21:00)
[2021-05-09] VITALS (24 sets, daily range): BP systolic 96–158
[2021-05-09] MEDS: NYSTATIN 500,000 UNITS/5 ML UDC PO SCH ×4 (01:06→17:28)
[2021-05-09] MEDS: ACETAMINOPHEN 325 MG TABLET PO PRN (01:06)
[2021-05-09] MEDS: NORMAL SALINE 5 ML DISP.SYRIN IVF SCH ×3 (05:25→21:52)
[2021-05-09] MEDS: ALBUTEROL MDI INHALATION 8 GM INH INH SCH ×4 (08:10→19:00)
[2021-05-09 08:34] LABS: BASOPHILS % (AUTO) 0.1 % (0.0-2.0); EOSINOPHILS % (AUTO) 0.1 % (0.0-4.0); HEMATOCRIT 35.9 % (36-48); HEMOGLOBIN 11.9 g/dL (12.0-16.0); LYMPHOCYTES # (AUTO) 0.2 K/uL (1.0-5.5); LYMPHOCYTES % (AUTO) 1.8 % (20.5-51.5); MEAN CORPUSCULAR HEMOGLOBIN 33 pg (27-31); MEAN CORPUSCULAR HGB CONC 33 % (32-36); MEAN CORPUSCULAR VOLUME 101 fL (79.0-98.0); MONOCYTES # (AUTO) 0.5 K/uL (0.0-1.0); MONOCYTES % (AUTO) 3.9 % (1.7-9.3); NEUTROPHILS # (AUTO) 12.9 K/uL (1.8-7.7); NEUTROPHILS % (AUTO) 94.1 % (40.0-70.0); PLATELET COUNT (AUTO) 219 K/uL (130-430); RED BLOOD CELL COUNT(AUTO) 3.57 MIL/uL (4.2-6.2); RED CELL DISTRIBUTION WIDTH 15.2 % (9.0-15.0); WHITE BLOOD COUNT (AUTO) 13.8 K/uL (4.8-10.8)
[2021-05-09] MEDS: cefTRIAXone 1 GM IVPB PREMIX 50 ML IV SCH (08:49)
[2021-05-09] MEDS: GABAPENTIN 300 MG CAPSULE PO SCH (09:04)
[2021-05-09] MEDS: DEXAMETHASONE SOD PHOSPHATE 10 MG/ML VIAL IVP SCH (09:04)
[2021-05-09 09:05] LABS: ALANINE AMINOTRANSFERASE 28 U/L (12-78); ALBUMIN 2.3 g/dL (3.4-4.8); ANION GAP 10 (5-15); ASPARTATE AMINOTRANSFERASE 27 U/L (10-37); CALCIUM 8.3 mg/dL (8.4-11.0); CHLORIDE 105 mmol/L (98-107); CREATININE 0.78 mg/dL (0.55-1.30); GLUCOSE 150 mg/dL (70-99); SODIUM SERUM 141 mmol/L (136-145); TOTAL BILIRUBIN 0.4 mg/dL (0.0-1.0); UREA NITROGEN, BLOOD 26 mg/dL (8-21)
[2021-05-09] MEDS: CHOLECALCIFEROL (VITAMIN D3) 5,000 UNIT TABLET PO SCH (09:05)
[2021-05-09] MEDS: ASCORBIC ACID 500 MG TABLET PO SCH ×2 (09:05→21:51)
[2021-05-09] MEDS: PANTOPRAZOLE SODIUM 40 MG TAB PO SCH (09:05)
[2021-05-09] MEDS: BARICITINIB -Non-Formulary 2 MG TABLET PO SCH (09:06)
[2021-05-09] MEDS: FUROSEMIDE 20 MG TABLET PO SCH (09:08)
[2021-05-09] MEDS: APIXABAN 2.5 MG TABLET PO SCH ×2 (09:09→21:00)
[2021-05-09 10:03] LABS: C-REACTIVE PROTEIN QUANT 18.3 mg/dL (0-0.5)
[2021-05-09 11:15] LABS: ERYTHROCYTE SEDIMENTATION RATE 67 MM/HR (0-20)
[2021-05-09] MEDS: INSULIN REGULAR, HUMAN 100 UNITS/ML, 10 ML VIAL (humuLIN R) SUBCUT PRN ×2 (11:50→17:24)
[2021-05-09] MEDS ORDERED: LORazepam 1 MG TABLET PO ONE (20:15)
[2021-05-09] MEDS: ATORVASTATIN 10 MG TABLET PO SCH (21:51)
[2021-05-10] VITALS (24 sets, daily range): BP systolic 93–175
[2021-05-10] MEDS: NYSTATIN 500,000 UNITS/5 ML UDC PO SCH ×4 (06:16→17:13)
[2021-05-10] MEDS: NORMAL SALINE 5 ML DISP.SYRIN IVF SCH ×3 (06:16→21:11)
[2021-05-10] MEDS: INSULIN REGULAR, HUMAN 100 UNITS/ML, 10 ML VIAL (humuLIN R) SUBCUT PRN ×3 (07:27→17:20)
[2021-05-10 07:30] LABS: ANION GAP 9 (5-15); CALCIUM 9.1 mg/dL (8.4-11.0); CHLORIDE 108 mmol/L (98-107); GLUCOSE 191 mg/dL (70-99); SODIUM SERUM 146 mmol/L (136-145); UREA NITROGEN, BLOOD 35 mg/dL (8-21)
[2021-05-10] MEDS: ALBUTEROL MDI INHALATION 8 GM INH INH SCH ×3 (07:34→15:59)
[2021-05-10 07:38] LABS: BASOPHILS % (AUTO) 0.1 % (0.0-2.0); HEMATOCRIT 37.4 % (36-48); LYMPHOCYTES # (AUTO) 0.2 K/uL (1.0-5.5); LYMPHOCYTES % (AUTO) 1.2 % (20.5-51.5); MEAN CORPUSCULAR HEMOGLOBIN 33 pg (27-31); MEAN CORPUSCULAR HGB CONC 32 % (32-36); MEAN CORPUSCULAR VOLUME 102 fL (79.0-98.0); MONOCYTES # (AUTO) 1.2 K/uL (0.0-1.0); MONOCYTES % (AUTO) 6.2 % (1.7-9.3); NEUTROPHILS # (AUTO) 17.4 K/uL (1.8-7.7); NEUTROPHILS % (AUTO) 92.5 % (40.0-70.0); PLATELET COUNT (AUTO) 271 K/uL (130-430); RED BLOOD CELL COUNT(AUTO) 3.67 MIL/uL (4.2-6.2); RED CELL DISTRIBUTION WIDTH 15.3 % (9.0-15.0)
[2021-05-10 07:39] LABS: C-REACTIVE PROTEIN QUANT 9.1 mg/dL (0-0.5)
[2021-05-10 08:25] LABS: WHITE BLOOD COUNT (AUTO) 18.8 K/uL (4.8-10.8)
[2021-05-10] MEDS: ASCORBIC ACID 500 MG TABLET PO SCH ×2 (08:33→21:11)
[2021-05-10] MEDS: CHOLECALCIFEROL (VITAMIN D3) 5,000 UNIT TABLET PO SCH (08:33)
[2021-05-10] MEDS: GABAPENTIN 300 MG CAPSULE PO SCH (08:33)
[2021-05-10] MEDS: cefTRIAXone 1 GM IVPB PREMIX 50 ML IV SCH (08:34)
[2021-05-10] MEDS: DEXAMETHASONE SOD PHOSPHATE 10 MG/ML VIAL IVP SCH (08:34)
[2021-05-10] MEDS: PANTOPRAZOLE SODIUM 40 MG TAB PO SCH (08:35)
[2021-05-10] MEDS: FUROSEMIDE 20 MG TABLET PO SCH (08:35)
[2021-05-10] MEDS: BARICITINIB -Non-Formulary 2 MG TABLET PO SCH (08:36)
[2021-05-10] MEDS: APIXABAN 2.5 MG TABLET PO SCH ×2 (08:40→21:10)
[2021-05-10 09:14] LABS: ERYTHROCYTE SEDIMENTATION RATE 71 MM/HR (0-20)
[2021-05-10] MEDS ORDERED: amLODIPine BESYLATE 5 MG TABLET PO ONE (09:30)
[2021-05-10] MEDS: LORazepam 2 MG/ML VIAL IVP PRN ×2 (17:19→22:00)
[2021-05-10] MEDS: ATORVASTATIN 10 MG TABLET PO SCH (21:10)
[2021-05-11] VITALS (24 sets, daily range): BP systolic 29–176
[2021-05-11] MEDS: NYSTATIN 500,000 UNITS/5 ML UDC PO SCH ×4 (00:21→17:49)
[2021-05-11] MEDS: LORazepam 2 MG/ML VIAL IVP PRN (04:30)
[2021-05-11] MEDS ORDERED: FLUCONAZOLE 200 mg/ NS 100 ML IV ONE (05:13)
[2021-05-11] MEDS: NORMAL SALINE 5 ML DISP.SYRIN IVF SCH ×3 (05:41→22:00)
[2021-05-11] MEDS: FLUCONAZOLE 100 mg/ NS 50 ML IV SCH (05:41)
[2021-05-11] MEDS: INSULIN REGULAR, HUMAN 100 UNITS/ML, 10 ML VIAL (humuLIN R) SUBCUT PRN ×3 (06:38→17:19)
[2021-05-11 07:58] LABS: ALANINE AMINOTRANSFERASE 28 U/L (12-78); ALBUMIN 2.2 g/dL (3.4-4.8); ANION GAP 9 (5-15); ASPARTATE AMINOTRANSFERASE 20 U/L (10-37); CALCIUM 8.8 mg/dL (8.4-11.0); CHLORIDE 110 mmol/L (98-107); CREATININE 0.82 mg/dL (0.55-1.30); GLUCOSE 240 mg/dL (70-99); POTASSIUM 4.4 mmol/L (3.5-5.1); SODIUM SERUM 145 mmol/L (136-145); TOTAL BILIRUBIN 0.3 mg/dL (0.0-1.0); UREA NITROGEN, BLOOD 43 mg/dL (8-21)
[2021-05-11 07:59] LABS: BASOPHILS # (AUTO) 0.1 K/uL (0.0-0.2); BASOPHILS % (AUTO) 0.9 % (0.0-2.0); EOSINOPHILS # (AUTO) 0.3 K/uL (0.0-0.4); EOSINOPHILS % (AUTO) 2.1 % (0.0-4.0); HEMATOCRIT 33.5 % (36-48); LYMPHOCYTES # (AUTO) 0.5 K/uL (1.0-5.5); LYMPHOCYTES % (AUTO) 3.1 % (20.5-51.5); MEAN CORPUSCULAR HEMOGLOBIN 33 pg (27-31); MEAN CORPUSCULAR HGB CONC 33 % (32-36); MEAN CORPUSCULAR VOLUME 101 fL (79.0-98.0); MONOCYTES # (AUTO) 0.7 K/uL (0.0-1.0); MONOCYTES % (AUTO) 4.7 % (1.7-9.3); NEUTROPHILS # (AUTO) 14.1 K/uL (1.8-7.7); NEUTROPHILS % (AUTO) 89.2 % (40.0-70.0); PLATELET COUNT (AUTO) 315 K/uL (130-430); RED BLOOD CELL COUNT(AUTO) 3.31 MIL/uL (4.2-6.2); RED CELL DISTRIBUTION WIDTH 15.8 % (9.0-15.0); WHITE BLOOD COUNT (AUTO) 15.8 K/uL (4.8-10.8)
[2021-05-11] MEDS: cefTRIAXone 1 GM IVPB PREMIX 50 ML IV SCH (08:00)
[2021-05-11 08:09] LABS: C-REACTIVE PROTEIN QUANT 5.5 mg/dL (0-0.5)
[2021-05-11] MEDS: ALBUTEROL MDI INHALATION 8 GM INH INH SCH ×5 (08:16→23:18)
[2021-05-11] MEDS: PANTOPRAZOLE SODIUM 40 MG TAB PO SCH (09:00)
[2021-05-11] MEDS: BARICITINIB -Non-Formulary 2 MG TABLET PO SCH (09:00)
[2021-05-11] MEDS: ASCORBIC ACID 500 MG TABLET PO SCH ×2 (09:00→21:49)
[2021-05-11] MEDS: APIXABAN 2.5 MG TABLET PO SCH ×2 (09:00→21:49)
[2021-05-11] MEDS: amLODIPine BESYLATE 5 MG TABLET PO SCH (09:00)
[2021-05-11] MEDS: CHOLECALCIFEROL (VITAMIN D3) 5,000 UNIT TABLET PO SCH (09:00)
[2021-05-11] MEDS: DEXAMETHASONE SOD PHOSPHATE 10 MG/ML VIAL IVP SCH (09:31)
[2021-05-11] MEDS: GABAPENTIN 300 MG CAPSULE PO SCH (09:32)
[2021-05-11 09:35] LABS: ERYTHROCYTE SEDIMENTATION RATE 78 MM/HR (0-20)
[2021-05-11] MEDS ORDERED: hydrALAZINE HCL 20 MG/ML VIAL IVP PRN (11:15)
[2021-05-11] MEDS: D5/0.45 NS 1,000 ML IV SCH ×2 (11:45→20:30)
[2021-05-11] MEDS ORDERED: NALOXONE HCL 0.4 MG/ML AMP (NARCAN) IVP PRN (13:45)
[2021-05-11] MEDS ORDERED: MORPHINE 2 MG/ML INJ. SYRINGE IVP PRN (13:45)
[2021-05-11] MEDS: DEXMEDETOMIDINE HCL 400 MCG in NS 96 ML IV SCH ×2 (14:41→17:49)
[2021-05-11] MEDS: ATORVASTATIN 10 MG TABLET PO SCH (21:45)
[2021-05-12] VITALS (23 sets, daily range): BP systolic 117–162
[2021-05-12] MEDS: FLUCONAZOLE 100 mg/ NS 50 ML IV SCH (02:00)
[2021-05-12] MEDS: D5/0.45 NS 1,000 ML IV SCH ×2 (04:34→15:50)
[2021-05-12 06:06] LABS: BASOPHILS % (AUTO) 0.1 % (0.0-2.0); EOSINOPHILS # (AUTO) 0.2 K/uL (0.0-0.4); HEMOGLOBIN 9.8 g/dL (12.0-16.0); LYMPHOCYTES # (AUTO) 0.3 K/uL (1.0-5.5); LYMPHOCYTES % (AUTO) 1.2 % (20.5-51.5); MEAN CORPUSCULAR HEMOGLOBIN 33 pg (27-31); MEAN CORPUSCULAR HGB CONC 33 % (32-36); MEAN CORPUSCULAR VOLUME 102 fL (79.0-98.0); MONOCYTES # (AUTO) 1.1 K/uL (0.0-1.0); NEUTROPHILS # (AUTO) 20.5 K/uL (1.8-7.7); NEUTROPHILS % (AUTO) 92.7 % (40.0-70.0); PLATELET COUNT (AUTO) 270 K/uL (130-430); RED BLOOD CELL COUNT(AUTO) 2.95 MIL/uL (4.2-6.2); RED CELL DISTRIBUTION WIDTH 15.9 % (9.0-15.0); WHITE BLOOD COUNT (AUTO) 22.2 K/uL (4.8-10.8)
[2021-05-12] MEDS: NORMAL SALINE 5 ML DISP.SYRIN IVF SCH ×3 (06:16→22:00)
[2021-05-12 06:36] LABS: ANION GAP 8 (5-15); CHLORIDE 109 mmol/L (98-107); CREATININE 1.01 mg/dL (0.55-1.30); GLUCOSE 283 mg/dL (70-99); POTASSIUM 4.7 mmol/L (3.5-5.1); SODIUM SERUM 142 mmol/L (136-145); UREA NITROGEN, BLOOD 46 mg/dL (8-21)
[2021-05-12] MEDS ORDERED: PIPERACILLIN/TAZOBACTAM 3.375 GM/VIAL (ZOSYN) IV ONE (06:36)
[2021-05-12] MEDS: PIPERACILLIN/TAZO 3.375/DEX-IS 50 ML IV SCH ×4 (07:03→23:10)
[2021-05-12 07:09] LABS: C-REACTIVE PROTEIN QUANT 3.6 mg/dL (0-0.5)
[2021-05-12] MEDS: ALBUTEROL MDI INHALATION 8 GM INH INH SCH ×5 (08:05→23:03)
[2021-05-12] MEDS: PANTOPRAZOLE SODIUM 40 MG TAB PO SCH (08:26)
[2021-05-12] MEDS: APIXABAN 2.5 MG TABLET PO SCH ×2 (08:26→20:48)
[2021-05-12] MEDS: GABAPENTIN 300 MG CAPSULE PO SCH (08:27)
[2021-05-12] MEDS: BARICITINIB -Non-Formulary 2 MG TABLET PO SCH (08:27)
[2021-05-12] MEDS: amLODIPine BESYLATE 5 MG TABLET PO SCH (08:29)
[2021-05-12] MEDS: CHOLECALCIFEROL (VITAMIN D3) 5,000 UNIT TABLET PO SCH (08:29)
[2021-05-12] MEDS: DEXAMETHASONE SOD PHOSPHATE 10 MG/ML VIAL IVP SCH (08:30)
[2021-05-12] MEDS: INSULIN REGULAR, HUMAN 100 UNITS/ML, 10 ML VIAL (humuLIN R) SUBCUT PRN ×3 (08:32→17:25)
[2021-05-12] MEDS: ASCORBIC ACID 500 MG TABLET PO SCH ×2 (09:00→20:45)
[2021-05-12 09:39] LABS: ERYTHROCYTE SEDIMENTATION RATE 60 MM/HR (0-20)
[2021-05-12] MEDS ORDERED: INSULIN REGULAR, HUMAN 100 UNITS/ML, 10 ML VIAL (humuLIN R) SUBCUT PRN (09:45)
[2021-05-12] MEDS ORDERED: *TPN PER PHARMACY XX PRN (09:45)
[2021-05-12] MEDS ORDERED: DEXTROSE 50% JECT 50 ML DISP.SYRIN IVP PRN (09:45)
[2021-05-12 11:23] LABS: PHOSPHORUS 3.2 mg/dL (2.7-4.5)
[2021-05-12] MEDS ORDERED: FUROSEMIDE 20 MG/2 ML VIAL IVP ONE (16:15)
[2021-05-12] MEDS: ATORVASTATIN 10 MG TABLET PO SCH (20:46)
[2021-05-12] MEDS ORDERED: CALCIUM GLUCONATE IV SCH ×7 (21:00)
[2021-05-12] MEDS ORDERED: [UNRECOGNIZED DRUG - OTHER] IV SCH ×7 (21:00)
[2021-05-12] MEDS ORDERED: TPN CENTRAL IV SCH ×7 (21:00)
[2021-05-12] MEDS ORDERED: K PHOS IV SCH ×7 (21:00)
[2021-05-12] MEDS ORDERED: D5/0.45 NS 1,000 ML IV SCH (21:00)
[2021-05-12] MEDS ORDERED: SODIUM ACETATE IV SCH ×7 (21:00)
[2021-05-13] VITALS (22 sets, daily range): BP systolic 108–163
[2021-05-13] MEDS ORDERED: DEXMEDETOMIDINE HCL 200 MCG/2 ML VIAL IV ONE (00:44)
[2021-05-13] MEDS: DEXMEDETOMIDINE HCL 400 MCG in NS 96 ML IV SCH ×4 (00:56→22:48)
[2021-05-13] MEDS: FLUCONAZOLE 100 mg/ NS 50 ML IV SCH (01:15)
[2021-05-13] MEDS: PIPERACILLIN/TAZO 3.375/DEX-IS 50 ML IV SCH ×4 (05:25→23:28)
[2021-05-13] MEDS: ALBUTEROL MDI INHALATION 8 GM INH INH SCH ×6 (05:25→19:00)
[2021-05-13] MEDS: NORMAL SALINE 5 ML DISP.SYRIN IVF SCH ×3 (06:00→21:55)
[2021-05-13 07:55] LABS: ALBUMIN 1.9 g/dL (3.4-4.8); ANION GAP 10 (5-15); CALCIUM 7.4 mg/dL (8.4-11.0); CHLORIDE 102 mmol/L (98-107); CREATININE 0.87 mg/dL (0.55-1.30); GLUCOSE 287 mg/dL (70-99); PHOSPHORUS 3.3 mg/dL (2.7-4.5); POTASSIUM 3.9 mmol/L (3.5-5.1); SODIUM SERUM 137 mmol/L (136-145); UREA NITROGEN, BLOOD 36 mg/dL (8-21)
[2021-05-13 08:16] LABS: BASOPHILS # (AUTO) 0.4 K/uL (0.0-0.2); BASOPHILS % (AUTO) 1.9 % (0.0-2.0); EOSINOPHILS # (AUTO) 0.2 K/uL (0.0-0.4); EOSINOPHILS % (AUTO) 1.1 % (0.0-4.0); HEMOGLOBIN 10.6 g/dL (12.0-16.0); LYMPHOCYTES # (AUTO) 0.5 K/uL (1.0-5.5); LYMPHOCYTES % (AUTO) 2.3 % (20.5-51.5); MEAN CORPUSCULAR HEMOGLOBIN 34 pg (27-31); MEAN CORPUSCULAR HGB CONC 34 % (32-36); MEAN CORPUSCULAR VOLUME 100 fL (79.0-98.0); MONOCYTES # (AUTO) 0.6 K/uL (0.0-1.0); MONOCYTES % (AUTO) 2.8 % (1.7-9.3); NEUTROPHILS # (AUTO) 18.8 K/uL (1.8-7.7); NEUTROPHILS % (AUTO) 91.9 % (40.0-70.0); PLATELET COUNT (AUTO) 333 K/uL (130-430); RED BLOOD CELL COUNT(AUTO) 3.09 MIL/uL (4.2-6.2); RED CELL DISTRIBUTION WIDTH 15.2 % (9.0-15.0); WHITE BLOOD COUNT (AUTO) 20.5 K/uL (4.8-10.8)
[2021-05-13] MEDS: amLODIPine BESYLATE 5 MG TABLET PO SCH (08:20)
[2021-05-13] MEDS: DEXAMETHASONE SOD PHOSPHATE 10 MG/ML VIAL IVP SCH (08:23)
[2021-05-13] MEDS: ASCORBIC ACID 500 MG TABLET PO SCH ×2 (08:23→20:15)
[2021-05-13] MEDS: CHOLECALCIFEROL (VITAMIN D3) 5,000 UNIT TABLET PO SCH (08:23)
[2021-05-13] MEDS: GABAPENTIN 300 MG CAPSULE PO SCH (08:24)
[2021-05-13] MEDS: PANTOPRAZOLE SODIUM 40 MG TAB PO SCH (08:24)
[2021-05-13] MEDS: APIXABAN 2.5 MG TABLET PO SCH ×2 (08:24→20:17)
[2021-05-13] MEDS: BARICITINIB -Non-Formulary 2 MG TABLET PO SCH (08:25)
[2021-05-13 09:07] LABS: C-REACTIVE PROTEIN QUANT 3.2 mg/dL (0-0.5)
[2021-05-13] MEDS ORDERED: FUROSEMIDE 20 MG/2 ML VIAL IVP ONE (09:45)
[2021-05-13 12:04] LABS: ERYTHROCYTE SEDIMENTATION RATE 58 MM/HR (0-20)
[2021-05-13] MEDS: INSULIN REGULAR, HUMAN 100 UNITS/ML, 10 ML VIAL (humuLIN R) SUBCUT PRN ×2 (12:08→17:48)
[2021-05-13] MEDS: D5/0.45 NS 1,000 ML IV SCH ×3 (12:30→21:56)
[2021-05-13] MEDS: LORazepam 2 MG/ML VIAL IVP PRN ×2 (16:08→21:46)
[2021-05-13] MEDS: FUROSEMIDE 20 MG/2 ML VIAL IVP SCH (20:16)
[2021-05-13] MEDS: ATORVASTATIN 10 MG TABLET PO SCH (21:46)
[2021-05-13] MEDS ORDERED: FLUCONAZOLE 200 mg/ NS 100 ML IV ONE (23:05)
[2021-05-14] VITALS (23 sets, daily range): BP systolic 110–147
[2021-05-14] MEDS: ALBUTEROL MDI INHALATION 8 GM INH INH SCH ×7 (00:12→23:42)
[2021-05-14] MEDS: FLUCONAZOLE 100 mg/ NS 50 ML IV SCH (01:15)
[2021-05-14] MEDS: PIPERACILLIN/TAZO 3.375/DEX-IS 50 ML IV SCH ×3 (05:30→17:31)
[2021-05-14] MEDS: NORMAL SALINE 5 ML DISP.SYRIN IVF SCH ×3 (05:31→22:16)
[2021-05-14] MEDS: DEXMEDETOMIDINE HCL 400 MCG in NS 96 ML IV SCH (06:14)
[2021-05-14 07:00] LABS: BASOPHILS # (AUTO) 0.1 K/uL (0.0-0.2); BASOPHILS % (AUTO) 0.2 % (0.0-2.0); HEMATOCRIT 32.6 % (36-48); HEMOGLOBIN 10.5 g/dL (12.0-16.0); LYMPHOCYTES # (AUTO) 0.3 K/uL (1.0-5.5); MEAN CORPUSCULAR HEMOGLOBIN 32 pg (27-31); MEAN CORPUSCULAR HGB CONC 32 % (32-36); MEAN CORPUSCULAR VOLUME 99 fL (79.0-98.0); MONOCYTES # (AUTO) 0.7 K/uL (0.0-1.0); MONOCYTES % (AUTO) 2.5 % (1.7-9.3); NEUTROPHILS # (AUTO) 25.1 K/uL (1.8-7.7); NEUTROPHILS % (AUTO) 96.3 % (40.0-70.0); PLATELET COUNT (AUTO) 229 K/uL (130-430); RED BLOOD CELL COUNT(AUTO) 3.28 MIL/uL (4.2-6.2); WHITE BLOOD COUNT (AUTO) 26.1 K/uL (4.8-10.8)
[2021-05-14 07:37] LABS: CHLORIDE 97 mmol/L (98-107); CREATININE 0.91 mg/dL (0.55-1.30); POTASSIUM 3.1 mmol/L (3.5-5.1); SODIUM SERUM 138 mmol/L (136-145)
[2021-05-14 07:43] LABS: ANION GAP 14 (5-15); CALCIUM 7.3 mg/dL (8.4-11.0); GLUCOSE 218 mg/dL (70-99); UREA NITROGEN, BLOOD 30 mg/dL (8-21)
[2021-05-14 08:07] LABS: C-REACTIVE PROTEIN QUANT 3.1 mg/dL (0-0.5)
[2021-05-14] MEDS: LORazepam 2 MG/ML VIAL IVP PRN (08:27)
[2021-05-14] MEDS: INSULIN REGULAR, HUMAN 100 UNITS/ML, 10 ML VIAL (humuLIN R) SUBCUT PRN ×3 (08:27→17:39)
[2021-05-14] MEDS: GABAPENTIN 300 MG CAPSULE PO SCH (08:29)
[2021-05-14] MEDS: DEXAMETHASONE SOD PHOSPHATE 4 MG/ML VIAL IVP SCH (08:29)
[2021-05-14] MEDS: PANTOPRAZOLE SODIUM 40 MG TAB PO SCH (08:29)
[2021-05-14] MEDS: amLODIPine BESYLATE 5 MG TABLET PO SCH (08:30)
[2021-05-14] MEDS: APIXABAN 2.5 MG TABLET PO SCH ×2 (08:30→22:14)
[2021-05-14] MEDS: ASCORBIC ACID 500 MG TABLET PO SCH ×2 (08:30→22:13)
[2021-05-14] MEDS: FUROSEMIDE 20 MG/2 ML VIAL IVP SCH (08:31)
[2021-05-14] MEDS: CHOLECALCIFEROL (VITAMIN D3) 5,000 UNIT TABLET PO SCH (08:31)
[2021-05-14] MEDS ORDERED: POTASSIUM CHLORIDE 20 MEQ/PKT PACKET NG ONE (10:00)
[2021-05-14 10:36] LABS: ERYTHROCYTE SEDIMENTATION RATE 88 MM/HR (0-20)
[2021-05-14] MEDS: BARICITINIB -Non-Formulary 2 MG TABLET PO SCH (11:01)
[2021-05-14] MEDS: ATORVASTATIN 10 MG TABLET PO SCH (22:13)
[2021-05-14] MEDS ORDERED: DEXMEDETOMIDINE HCL 400 MCG in NS 96 ML IV PRN (22:45)
[2021-05-15] VITALS (31 sets, daily range): BP systolic 88–167
[2021-05-15] MEDS: FLUCONAZOLE 100 mg/ NS 50 ML IV SCH (02:58)
[2021-05-15] MEDS: ALBUTEROL MDI INHALATION 8 GM INH INH SCH ×6 (03:00→22:39)
[2021-05-15] MEDS: D5/0.45 NS 1,000 ML IV SCH ×3 (05:23→23:38)
[2021-05-15] MEDS: PIPERACILLIN/TAZO 3.375/DEX-IS 50 ML IV SCH ×5 (05:24→23:38)
[2021-05-15] MEDS: NORMAL SALINE 5 ML DISP.SYRIN IVF SCH ×3 (05:24→21:36)
[2021-05-15 06:38] LABS: ALANINE AMINOTRANSFERASE 33 U/L (12-78); ALBUMIN 1.6 g/dL (3.4-4.8); ANION GAP 8 (5-15); ASPARTATE AMINOTRANSFERASE 46 U/L (10-37); CALCIUM 7.7 mg/dL (8.4-11.0); CHLORIDE 100 mmol/L (98-107); CREATININE 0.64 mg/dL (0.55-1.30); GLUCOSE 294 mg/dL (70-99); POTASSIUM 3.2 mmol/L (3.5-5.1); SODIUM SERUM 134 mmol/L (136-145); TOTAL BILIRUBIN 0.2 mg/dL (0.0-1.0); UREA NITROGEN, BLOOD 22 mg/dL (8-21)
[2021-05-15 07:12] LABS: C-REACTIVE PROTEIN QUANT 10.9 mg/dL (0-0.5)
[2021-05-15 07:53] LABS: HEMOGLOBIN 10.5 g/dL (12.0-16.0); MEAN CORPUSCULAR HEMOGLOBIN 35 pg (27-31); MEAN CORPUSCULAR HGB CONC 35 % (32-36); MEAN CORPUSCULAR VOLUME 100 fL (79.0-98.0); PLATELET COUNT (AUTO) 419 K/uL (130-430); RED BLOOD CELL COUNT(AUTO) 3.01 MIL/uL (4.2-6.2); RED CELL DISTRIBUTION WIDTH 15.4 % (9.0-15.0)
[2021-05-15] MEDS ORDERED: POTASSIUM CHLORIDE 20 MEQ TAB.PRT.SR GT ONE (08:15)
[2021-05-15 08:45] LABS: WHITE BLOOD COUNT (AUTO) 30.7 K/uL (4.8-10.8)
[2021-05-15] MEDS: DEXAMETHASONE SOD PHOSPHATE 4 MG/ML VIAL IVP SCH (09:00)
[2021-05-15] MEDS: amLODIPine BESYLATE 5 MG TABLET PO SCH (09:00)
[2021-05-15] MEDS: PANTOPRAZOLE SODIUM 40 MG TAB PO SCH (09:03)
[2021-05-15] MEDS: GABAPENTIN 300 MG CAPSULE PO SCH (09:03)
[2021-05-15] MEDS: ASCORBIC ACID 500 MG TABLET PO SCH ×2 (09:03→21:25)
[2021-05-15] MEDS: CHOLECALCIFEROL (VITAMIN D3) 5,000 UNIT TABLET PO SCH (09:03)
[2021-05-15] MEDS: BARICITINIB -Non-Formulary 2 MG TABLET PO SCH (09:05)
[2021-05-15] MEDS: APIXABAN 2.5 MG TABLET PO SCH ×2 (09:06→21:35)
[2021-05-15] MEDS ORDERED: PROPOFOL DRIP 100 ML IV ONE (10:09)
[2021-05-15] MEDS ORDERED: MORPHINE SULFATE IN 0.9 % NACL 100 ML IV ONE (10:10)
[2021-05-15] MEDS ORDERED: NOREPINEPHRINE 4 MG/4 ML VIAL IV ONE (10:32)
[2021-05-15] MEDS: NOREPINEPHRINE BITARTRATE 4 MG in D5W 246 ML IV PRN (10:36)
[2021-05-15] MEDS: PROPOFOL DRIP 100 ML IV PRN ×2 (11:01→18:25)
[2021-05-15] MEDS: MORPHINE SULFATE IN 0.9 % NACL 100 ML IV PRN (11:05)
[2021-05-15] MEDS ORDERED: SUCCINYLCHOLINE CHLORIDE 20 MG/ML(QUELICIN) IVP ONE (11:13)
[2021-05-15] MEDS ORDERED: ETOMIDATE 20 MG/ 10 ML VIAL (AMIDATE) IVP ONE (11:13)
[2021-05-15 11:44] LABS: ERYTHROCYTE SEDIMENTATION RATE 29 MM/HR (0-20)
[2021-05-15] MEDS: INSULIN REGULAR, HUMAN 100 UNITS/ML, 10 ML VIAL (humuLIN R) SUBCUT PRN ×2 (12:00→17:16)
[2021-05-15] MEDS ORDERED: DEXAMETHASONE SOD PHOSPHATE 4 MG/ML VIAL IVP ONE (12:30)
[2021-05-15 14:56] LABS: BAND % (MANUAL) 31 % (0-6); BASOPHILS % (MANUAL) 0 % (0-2); EOSINOPHILS % (MANUAL) 0 % (0-7); LYMPHOCYTES % (MANUAL) 2 % (20-46); MONOCYTES % (MANUAL) 0 % (0-11)
[2021-05-15] MEDS: ATORVASTATIN 10 MG TABLET PO SCH (21:25)
[2021-05-16] VITALS (31 sets, daily range): BP systolic 86–136
[2021-05-16] MEDS: FLUCONAZOLE 100 mg/ NS 50 ML IV SCH (01:02)
[2021-05-16] MEDS: ALBUTEROL MDI INHALATION 8 GM INH INH SCH ×6 (03:50→23:56)
[2021-05-16] MEDS: PROPOFOL DRIP 100 ML IV PRN (04:07)
[2021-05-16] MEDS: NOREPINEPHRINE BITARTRATE 4 MG in D5W 246 ML IV PRN (04:08)
[2021-05-16] MEDS: NORMAL SALINE 5 ML DISP.SYRIN IVF SCH ×3 (06:38→22:22)
[2021-05-16] MEDS: PIPERACILLIN/TAZO 3.375/DEX-IS 50 ML IV SCH ×3 (06:38→17:48)
[2021-05-16 06:47] LABS: BASOPHILS % (AUTO) 0.1 % (0.0-2.0); EOSINOPHILS % (AUTO) 0.1 % (0.0-4.0); HEMATOCRIT 30.5 % (36-48); LYMPHOCYTES # (AUTO) 0.2 K/uL (1.0-5.5); LYMPHOCYTES % (AUTO) 0.7 % (20.5-51.5); MEAN CORPUSCULAR HEMOGLOBIN 33 pg (27-31); MEAN CORPUSCULAR HGB CONC 33 % (32-36); MEAN CORPUSCULAR VOLUME 100 fL (79.0-98.0); MONOCYTES # (AUTO) 0.1 K/uL (0.0-1.0); MONOCYTES % (AUTO) 0.3 % (1.7-9.3); NEUTROPHILS # (AUTO) 24.5 K/uL (1.8-7.7); NEUTROPHILS % (AUTO) 98.8 % (40.0-70.0); PLATELET COUNT (AUTO) 208 K/uL (130-430); RED BLOOD CELL COUNT(AUTO) 3.05 MIL/uL (4.2-6.2); RED CELL DISTRIBUTION WIDTH 15.2 % (9.0-15.0); WHITE BLOOD COUNT (AUTO) 24.8 K/uL (4.8-10.8)
[2021-05-16 06:48] LABS: ANION GAP 9 (5-15); CALCIUM 7.9 mg/dL (8.4-11.0); CHLORIDE 100 mmol/L (98-107); GLUCOSE 145 mg/dL (70-99); POTASSIUM 4.2 mmol/L (3.5-5.1); SODIUM SERUM 133 mmol/L (136-145); UREA NITROGEN, BLOOD 17 mg/dL (8-21)
[2021-05-16 07:19] LABS: C-REACTIVE PROTEIN QUANT 24.5 mg/dL (0-0.5)
[2021-05-16] MEDS: amLODIPine BESYLATE 5 MG TABLET PO SCH (09:00)
[2021-05-16] MEDS: PANTOPRAZOLE SODIUM 40 MG TAB PO SCH (09:35)
[2021-05-16] MEDS: GABAPENTIN 300 MG CAPSULE PO SCH (09:35)
[2021-05-16] MEDS: CHOLECALCIFEROL (VITAMIN D3) 5,000 UNIT TABLET PO SCH (09:36)
[2021-05-16] MEDS: BARICITINIB -Non-Formulary 2 MG TABLET PO SCH (09:41)
[2021-05-16] MEDS: APIXABAN 2.5 MG TABLET PO SCH ×2 (09:41→20:31)
[2021-05-16] MEDS: DEXAMETHASONE SOD PHOSPHATE 4 MG/ML VIAL IVP SCH (09:54)
[2021-05-16] MEDS ORDERED: DEXAMETHASONE SOD PHOSPHATE 4 MG/ML VIAL ONE (09:56)
[2021-05-16] MEDS: VANCOMYCIN HCL 750 MG/NS 250 ML IV SCH ×2 (11:00→23:34)
[2021-05-16 12:47] LABS: ERYTHROCYTE SEDIMENTATION RATE 106 MM/HR (0-20)
[2021-05-16] MEDS: D5/0.45 NS 1,000 ML IV SCH (13:00)
[2021-05-16] MEDS: ASCORBIC ACID 500 MG TABLET PO SCH ×2 (17:45→20:31)
[2021-05-16] MEDS: INSULIN REGULAR, HUMAN 100 UNITS/ML, 10 ML VIAL (humuLIN R) SUBCUT PRN ×2 (17:56→20:39)
[2021-05-16] MEDS: ATORVASTATIN 10 MG TABLET PO SCH (20:31)
[2021-05-17] VITALS (26 sets, daily range): BP systolic 94–127
[2021-05-17] MEDS: FLUCONAZOLE 100 mg/ NS 50 ML IV SCH (02:00)
[2021-05-17] MEDS: ALBUTEROL MDI INHALATION 8 GM INH INH SCH ×5 (04:25→18:40)
[2021-05-17] MEDS: D5/0.45 NS 1,000 ML IV SCH ×2 (05:26→17:04)
[2021-05-17] MEDS: PIPERACILLIN/TAZO 3.375/DEX-IS 50 ML IV SCH ×5 (05:30→23:23)
[2021-05-17] MEDS: NORMAL SALINE 5 ML DISP.SYRIN IVF SCH ×3 (06:35→22:08)
[2021-05-17] MEDS: INSULIN REGULAR, HUMAN 100 UNITS/ML, 10 ML VIAL (humuLIN R) SUBCUT PRN ×4 (06:36→20:29)
[2021-05-17 06:41] LABS: ANION GAP 9 (5-15); CALCIUM 7.4 mg/dL (8.4-11.0); CHLORIDE 97 mmol/L (98-107); CREATININE 1.68 mg/dL (0.55-1.30); GLUCOSE 259 mg/dL (70-99); POTASSIUM 4.5 mmol/L (3.5-5.1); SODIUM SERUM 128 mmol/L (136-145); UREA NITROGEN, BLOOD 37 mg/dL (8-21)
[2021-05-17 08:04] LABS: BASOPHILS % (AUTO) 0.1 % (0.0-2.0); EOSINOPHILS # (AUTO) 0.1 K/uL (0.0-0.4); EOSINOPHILS % (AUTO) 0.5 % (0.0-4.0); HEMOGLOBIN 7.9 g/dL (12.0-16.0); LYMPHOCYTES # (AUTO) 0.2 K/uL (1.0-5.5); LYMPHOCYTES % (AUTO) 1.1 % (20.5-51.5); MEAN CORPUSCULAR HEMOGLOBIN 33 pg (27-31); MEAN CORPUSCULAR HGB CONC 33 % (32-36); MEAN CORPUSCULAR VOLUME 100 fL (79.0-98.0); MONOCYTES # (AUTO) 0.1 K/uL (0.0-1.0); MONOCYTES % (AUTO) 0.5 % (1.7-9.3); NEUTROPHILS # (AUTO) 13.1 K/uL (1.8-7.7); NEUTROPHILS % (AUTO) 97.8 % (40.0-70.0); PLATELET COUNT (AUTO) 158 K/uL (130-430); RED BLOOD CELL COUNT(AUTO) 2.41 MIL/uL (4.2-6.2); RED CELL DISTRIBUTION WIDTH 15.3 % (9.0-15.0); WHITE BLOOD COUNT (AUTO) 13.4 K/uL (4.8-10.8)
[2021-05-17 08:05] LABS: C-REACTIVE PROTEIN QUANT 28.9 mg/dL (0-0.5)
[2021-05-17] MEDS: amLODIPine BESYLATE 5 MG TABLET PO SCH (09:00)
[2021-05-17] MEDS: PANTOPRAZOLE SODIUM 40 MG TAB PO SCH (09:17)
[2021-05-17] MEDS: ASCORBIC ACID 500 MG TABLET PO SCH ×2 (09:17→20:13)
[2021-05-17] MEDS: GABAPENTIN 300 MG CAPSULE PO SCH (09:17)
[2021-05-17] MEDS: CHOLECALCIFEROL (VITAMIN D3) 5,000 UNIT TABLET PO SCH (09:17)
[2021-05-17] MEDS: APIXABAN 2.5 MG TABLET PO SCH ×2 (09:19→20:14)
[2021-05-17] MEDS: BARICITINIB -Non-Formulary 2 MG TABLET PO SCH (09:28)
[2021-05-17] MEDS ORDERED: DEXAMETHASONE SOD PHOSPHATE 4 MG/ML VIAL IVP ONE (09:30)
[2021-05-17 14:10] LABS: ERYTHROCYTE SEDIMENTATION RATE 115 MM/HR (0-20)
[2021-05-17] MEDS: MORPHINE SULFATE IN 0.9 % NACL 100 ML IV PRN (15:47)
[2021-05-17] MEDS: ATORVASTATIN 10 MG TABLET PO SCH (20:12)
[2021-05-17] MEDS: PROPOFOL DRIP 100 ML IV PRN (23:26)
[2021-05-17] MEDS: NOREPINEPHRINE BITARTRATE 4 MG in D5W 246 ML IV PRN (23:27)
[2021-05-18] VITALS (9 sets, daily range): BP systolic 61–150
[2021-05-18] MEDS: ALBUTEROL MDI INHALATION 8 GM INH INH SCH ×3 (00:28→09:39)
[2021-05-18] MEDS: FLUCONAZOLE 100 mg/ NS 50 ML IV SCH (02:00)
[2021-05-18] MEDS: D5/0.45 NS 1,000 ML IV SCH (02:24)
[2021-05-18] MEDS: PIPERACILLIN/TAZO 3.375/DEX-IS 50 ML IV SCH (05:36)
[2021-05-18] MEDS: NORMAL SALINE 5 ML DISP.SYRIN IVF SCH (05:37)
[2021-05-18] MEDS: INSULIN REGULAR, HUMAN 100 UNITS/ML, 10 ML VIAL (humuLIN R) SUBCUT PRN (06:16)
[2021-05-18] MEDS ORDERED: SODIUM BICARBONATE 8.4% JECT 50 MEQ/50 ML SYRINGE IVP ONE ×2 (07:00)
[2021-05-18] MEDS ORDERED: SODIUM BICARBONATE 8.4% JECT 50 MEQ/50 ML SYRINGE ONE (07:15)
[2021-05-18] MEDS ORDERED: NOREPINEPHRINE 4 MG/4 ML VIAL IV ONE (07:56)
[2021-05-18] MEDS ORDERED: NOREPINEPHRINE BITARTRATE 16 MG in D5W 234 ML IV PRN (08:00)
[2021-05-18] MEDS ORDERED: VASOPRESSIN IV PRN (08:15)
[2021-05-18] MEDS ORDERED: PHENYLEPHRINE HCL 100 MG in NS 240 ML IV PRN (08:15)
[2021-05-18] MEDS ORDERED: D5W IV PRN (08:15)
[2021-05-18] MEDS ORDERED: DEXAMETHASONE SOD PHOSPHATE 4 MG/ML VIAL IVP SCH (09:00)
[2021-05-18 09:44] LABS: BASOPHILS % (AUTO) 0.2 % (0.0-2.0); EOSINOPHILS # (AUTO) 0.1 K/uL (0.0-0.4); EOSINOPHILS % (AUTO) 1.4 % (0.0-4.0); HEMOGLOBIN 8.4 g/dL (12.0-16.0); LYMPHOCYTES # (AUTO) 0.4 K/uL (1.0-5.5); LYMPHOCYTES % (AUTO) 8.6 % (20.5-51.5); MEAN CORPUSCULAR HEMOGLOBIN 33 pg (27-31); MEAN CORPUSCULAR HGB CONC 30 % (32-36); MEAN CORPUSCULAR VOLUME 108 fL (79.0-98.0); MONOCYTES # (AUTO) 0.1 K/uL (0.0-1.0); MONOCYTES % (AUTO) 1.4 % (1.7-9.3); NEUTROPHILS # (AUTO) 3.9 K/uL (1.8-7.7); NEUTROPHILS % (AUTO) 88.4 % (40.0-70.0); RED BLOOD CELL COUNT(AUTO) 2.59 MIL/uL (4.2-6.2); RED CELL DISTRIBUTION WIDTH 17.2 % (9.0-15.0); WHITE BLOOD COUNT (AUTO) 4.4 K/uL (4.8-10.8)
[2021-05-18 10:02] LABS: C-REACTIVE PROTEIN QUANT 18.7 mg/dL (0-0.5)
[2021-05-18] MEDS ORDERED: MORPHINE 2 MG/ML INJ. SYRINGE IVP SCH (12:00)
[2021-05-18 12:34] LABS: PLATELET COUNT (AUTO) 66 K/uL (130-430)
== END 2021-05-18 15:57 | DRG 871 ==
LOC: SED 19:50 → STU 04-29 01:18 → SIC 05-06 10:12
PROVIDERS: ADMIT Preventive Medicine Preventive Medicine/Occupational Environmental Medicine; ATTEND Preventive Medicine Preventive Medicine/Occupational Environmental Medicine
PROC: XW033E5 Introduction of Remdesivir Anti-infective into Peripheral Vein, Percutaneous Approach, New Technology Group 5 (ICD-10-PCS; 2021-04-29)
PROC: 02HV33Z Insertion of Infusion Device into Superior Vena Cava, Percutaneous Approach (ICD-10-PCS; 2021-05-03)
PROC: B548ZZA Ultrasonography of Superior Vena Cava, Guidance (ICD-10-PCS; 2021-05-03)
PROC: 5A0935A Assistance with Respiratory Ventilation, Less than 24 Consecutive Hours, High Flow/Velocity Cannula (ICD-10-PCS; 2021-05-05)
PROC: 5A0935A Assistance with Respiratory Ventilation, Less than 24 Consecutive Hours, High Flow/Velocity Cannula (ICD-10-PCS; 2021-05-06)
PROC: 0BH17EZ Insertion of Endotracheal Airway into Trachea, Via Natural or Artificial Opening (ICD-10-PCS; principal; 2021-05-15)
PROC: 5A1945Z Respiratory Ventilation, 24-96 Consecutive Hours (ICD-10-PCS; 2021-05-15)
PROC: 0D9670Z Drainage of Stomach with Drainage Device, Via Natural or Artificial Opening (ICD-10-PCS; 2021-05-15)
PROC: 05HY33Z Insertion of Infusion Device into Upper Vein, Percutaneous Approach (ICD-10-PCS; 2021-05-15)
DX: A41.9 Sepsis, unspecified organism (principal); U07.1 COVID-19; J12.82 Pneumonia due to coronavirus disease 2019; E43 Unspecified severe protein-calorie malnutrition; J96.21 Acute and chronic respiratory failure with hypoxia; R65.21 Severe sepsis with septic shock; B37.0 Candidal stomatitis; D61.818 Other pancytopenia; E87.0 Hyperosmolality and hypernatremia; J44.0 Chronic obstructive pulmonary disease with (acute) lower respiratory infection; N17.9 Acute kidney failure, unspecified; N39.0 Urinary tract infection, site not specified; Z99.11 Dependence on respirator [ventilator] status; I46.9 Cardiac arrest, cause unspecified; B96.89 Other specified bacterial agents as the cause of diseases classified elsewhere; D63.1 Anemia in chronic kidney disease; E11.22 Type 2 diabetes mellitus with diabetic chronic kidney disease; E11.40 Type 2 diabetes mellitus with diabetic neuropathy, unspecified; E11.65 Type 2 diabetes mellitus with hyperglycemia; Z66 Do not resuscitate; E78.5 Hyperlipidemia, unspecified; E83.52 Hypercalcemia; E87.5 Hyperkalemia; E88.09 Other disorders of plasma-protein metabolism, not elsewhere classified; F41.9 Anxiety disorder, unspecified; N18.9 Chronic kidney disease, unspecified; R53.81 Other malaise; R74.01 Elevation of levels of liver transaminase levels; I12.9 Hypertensive chronic kidney disease with stage 1 through stage 4 chronic kidney disease, or unspecified chronic kidney disease; I27.20 Pulmonary hypertension, unspecified; I48.91 Unspecified atrial fibrillation; K21.9 Gastro-esophageal reflux disease without esophagitis; M06.9 Rheumatoid arthritis, unspecified; Z79.01 Long term (current) use of anticoagulants; Z79.899 Other long term (current) drug therapy; Z68.21 Body mass index [BMI] 21.0-21.9, adult
CPT/HCPCS: 36415; 36600; 71045; 74018; 76770; 80048; 80053; 80202; 81000; 82040; 82550; 82570; 82728; 82803-TC; 82962; 83605; 83615; 83735; 83880; 84100; 84478; 84484; 85007; 85025; 85027; 85379; 85384; 85610-TC; 85651-TC; 85730-TC; 86140; 87040; 87086; 92610-GN; 93005; 93306; 93880; 94002; 94003; 94640; 94760; 96374; 96375; 97110-GP; 97116-GP; 97163-GP; 97530-GP; 99285; G0378; J0330; J0360; J0456; J0610; J0696; J1100; J1450; J1815; J1940; J2060; J2270; J2310; J2370; J2543; J2704; J3370; J3490; J7050; J7060